=== PATIENT | female | born 1990 | race Two or more races ===

== ENCOUNTER 2018-05-03 12:30 | Inpatient (IN) | payer MEDICAID ==
[2018-05-03] MEDS ORDERED: CARBOPROST 250 MCG INJ IM (15:00)
[2018-05-03] MEDS ORDERED: MISOPROSTOL 200 MCG TAB PR (15:00)
[2018-05-03] MEDS ORDERED: METHYLERGONOVINE 0.2 MG INJ IM (15:00)
[2018-05-03] MEDS ORDERED: LIDOCAINE 1% (MPF) 30 ML INJ INJ (15:00)
[2018-05-03] MEDS ORDERED: OXYTOCIN 30 UNITS/LR 500 ML IV ×2 (15:00)
[2018-05-03] MEDS: LACTATED RINGER'S 1,000 ML IV* ×3 (15:48→22:43)
[2018-05-03] MEDS: OXYTOCIN 30 UNITS/LR 500 ML IV (16:03)
[2018-05-03 16:18] LABS: ADD MAN DIFF? NO
[2018-05-03 16:19] LABS: WHITE BLOOD COUNT 11.4 10^3/ul (4.8-10.8)
[2018-05-03 16:19] LABS: BASOPHILS % 0.2 % (0.0-2.0); EOSINOPHILS % 0.4 % (0.0-7.0); HEMATOCRIT 32.8 % (37.0-47.0); HEMOGLOBIN 10.9 g/dl (12.0-16.0); LYMPHOCYTES # 3.3 10^3/ul (0.8-2.9); MEAN CORPUSCULAR HEMOGLOBIN 29.3 pg (29.0-33.0); MEAN CORPUSCULAR HGB CONC 33.2 g/dl (32.0-37.0); MEAN CORPUSCULAR VOLUME 88.2 fl (82.0-101.0); MEAN PLATELET VOLUME 11.6 fl (7.4-10.4); MONOCYTE # 0.6 10^3/ul (0.3-0.9); MONOCYTES % 5.2 % (0.0-11.0); NEUTROPHIL # 7.3 10^3/ul (1.6-7.5); NEUTROPHILS % 64.3 % (39.0-77.0); PLATELET COUNT 198 10^3/UL (140-415); RED BLOOD COUNT 3.72 10^6/ul (4.20-5.40); RED CELL DISTRIBUTION WIDTH 12.9 % (11.5-14.5)
[2018-05-03 16:38] LABS: INR 0.87; PARTIAL THROMBOPLASTIN TIME 24.8 Sec (25.0-35.0); PROTIME 11.9 Sec (11.9-14.9); PT RATIO 0.9
[2018-05-03] MEDS ORDERED: FENTAnyl 2MCG/ML-ROPIV 0.2% 100 ML (22:45)
[2018-05-03] MEDS ORDERED: ONDANSETRON 4 MG INJ IV (23:00)
[2018-05-03] MEDS ORDERED: FENTAnyl 2MCG/ML-ROPIV 0.2% 100 ML BAG EPI (23:00)
[2018-05-03] MEDS ORDERED: NALOXONE (0.4 MG/ML) INJ IV (23:00)
[2018-05-03] MEDS ORDERED: DIPHENHYDRAMINE 50 MG INJ IV (23:00)
[2018-05-04] MEDS: LACTATED RINGER'S 1,000 ML IV* ×2 (01:19→07:45)
[2018-05-04] MEDS ORDERED: OXYTOCIN 30 UNITS/LR 500 ML IV (05:00)
[2018-05-04] MEDS ORDERED: MISOPROSTOL 200 MCG TAB PR (05:00)
[2018-05-04] MEDS ORDERED: CARBOPROST 250 MCG INJ IM (05:00)
[2018-05-04] MEDS ORDERED: METHYLERGONOVINE 0.2 MG INJ IM (05:00)
[2018-05-04] MEDS: IBUPROFEN 600 MG TAB PO ×3 (06:35→17:49)
[2018-05-04] MEDS: OXYTOCIN 30 UNITS/LR 500 ML IV (10:31)
[2018-05-04] MEDS: LANOLIN 7 GM TUBE TOP (10:32)
[2018-05-04 14:04] LABS: HEPATITIS B SURFACE ANTIGEN NEGATIVE (NEGATIVE)
[2018-05-04 22:11] LABS: RAPID PLASMA REAGIN NONREACTIVE (NR)
[2018-05-05] MEDS: IBUPROFEN 600 MG TAB PO ×4 (00:08→18:00)
[2018-05-05] MEDS: LANOLIN 7 GM TUBE TOP (04:33)
[2018-05-05 08:34] LABS: ADD MAN DIFF? NO
[2018-05-05 08:40] LABS: BASOPHIL # 0.1 10^3/ul (0.0-0.1); BASOPHILS % 0.3 % (0.0-2.0); EOSINOPHILS # 0.1 10^3/ul (0.0-0.5); EOSINOPHILS % 0.5 % (0.0-7.0); HEMATOCRIT 28.9 % (37.0-47.0); HEMOGLOBIN 9.4 g/dl (12.0-16.0); LYMPHOCYTES # 3.2 10^3/ul (0.8-2.9); LYMPHOCYTES % 21.3 % (15.0-51.0); MEAN CORPUSCULAR HEMOGLOBIN 28.1 pg (29.0-33.0); MEAN CORPUSCULAR HGB CONC 32.5 g/dl (32.0-37.0); MEAN CORPUSCULAR VOLUME 86.5 fl (82.0-101.0); MEAN PLATELET VOLUME 11.5 fl (7.4-10.4); MONOCYTE # 0.9 10^3/ul (0.3-0.9); MONOCYTES % 5.9 % (0.0-11.0); NEUTROPHIL # 10.7 10^3/ul (1.6-7.5); NEUTROPHILS % 71.4 % (39.0-77.0); PLATELET COUNT 169 10^3/UL (140-415); RED BLOOD COUNT 3.34 10^6/ul (4.20-5.40); RED CELL DISTRIBUTION WIDTH 13.2 % (11.5-14.5)
[2018-05-05] MEDS: HYDROCODONE/APAP (5/325) TAB PO (09:56)
[2018-05-06] MEDS: IBUPROFEN 600 MG TAB PO ×3 (00:56→12:36)
[2018-05-06] MEDS ORDERED: DIPHTH/TET/ACEL PERTUSS (ADULT) 0.5 ML VIAL IM* (09:00)
== END 2018-05-06 14:07 | disposition home or self-care (01) | DRG 775 ==
LOC: OBT 12:30 → PP1 05-04 06:32 → L-D 12:30 → OBT 14:00 → L-D 14:00
PROVIDERS: Obstetrics & Gynecology
PROC: 10E0XZZ Delivery of Products of Conception, External Approach (ICD-10-PCS; principal; 2018-05-04)
DX: O80 Encounter for full-term uncomplicated delivery (principal); Z3A.39 39 weeks gestation of pregnancy; Z37.0 Single live birth
CPT/HCPCS: 62319; 76818; 85025; 85610; 85730; 86592; 86850; 86900; 86901; 87340; 99464